=== PATIENT | female | born 1970 | race Caucasian/White ===

== ENCOUNTER → 2020-04-26 15:22 | Outpatient (BNVA) | payer OTHER, SELFPAY | PROVIDERS: Family Provider Nurse Practitioner Family; PCP Nurse Practitioner Family; Visit Provider Nurse Practitioner Family | DX: E55.9 Vitamin D deficiency, unspecified (principal); I10 Essential (primary) hypertension; R73.9 Hyperglycemia, unspecified | CPT/HCPCS: 80053; 80061; 82306; 83036; 84443; 85025 ==

== ENCOUNTER → 2020-06-01 15:46 | Outpatient (BNVA) | payer OTHER, SELFPAY | PROVIDERS: Family Provider Nurse Practitioner Family; PCP Nurse Practitioner Family; Visit Provider Nurse Practitioner Family | DX: M25.531 Pain in right wrist (principal); M79.641 Pain in right hand; M25.562 Pain in left knee | CPT/HCPCS: 73110; 73130; 73562 ==

== ENCOUNTER 2021-03-21 08:28 | Outpatient (CLI) | payer OTHER, SELFPAY ==
--- NOTE | 2021-03-21 08:15 | XRR_ITS ---
PROCEDURE INFORMATION: Exam: XR Abdomen Exam date and time: 03/21/2021 8:15 AM Age: 50 years old Clinical indication: Condition or disease; Kidney or ureter condition; Calculus (stone) in kidney; Prior surgery; Surgery type: Tubal; Additional info: History of kidney stones, f/u TECHNIQUE: Imaging protocol: XR of the abdomen. Views: Frontal supine view of the abdomen. 1 View. COMPARISON: CR XR KUB [id number] 03/17/2019 9:03 AM FINDINGS: Gastrointestinal tract: Normal. No bowel dilation. Bones/joints: Degenerative changes are present in the spine with disc space narrowing sclerosis and small osteophytes. XR/XR KUB [id number] IMPRESSION: No acute abnormality.
== END 2021-03-21 08:29 | disposition home or self-care (01) ==
LOC: RAD 08:30
PROVIDERS: PCP Nurse Practitioner Family; Visit Provider Urology
DX: N20.0 Calculus of kidney (principal)
CPT/HCPCS: 74018; 81003

== ENCOUNTER → 2021-05-19 16:30 | Outpatient (BNVA) | payer OTHER, SELFPAY | PROVIDERS: PCP Nurse Practitioner Family; Visit Provider Nurse Practitioner Family | DX: I10 Essential (primary) hypertension (principal); R73.9 Hyperglycemia, unspecified; E55.9 Vitamin D deficiency, unspecified | CPT/HCPCS: 80053; 80061; 82306; 82607; 83036; 84443; 85025 ==

== ENCOUNTER → 2021-07-20 14:30 | Outpatient (BNVA) | payer OTHER, SELFPAY | PROVIDERS: PCP Nurse Practitioner Family; Visit Provider Nurse Practitioner Family | DX: N39.0 Urinary tract infection, site not specified (principal) | CPT/HCPCS: 81003; 87077; 87086; 87184 ==

== ENCOUNTER → 2022-03-03 10:44 | Outpatient (BNVA) | payer OTHER, SELFPAY | PROVIDERS: PCP Nurse Practitioner Family; Visit Provider Nurse Practitioner Family | DX: E78.5 Hyperlipidemia, unspecified (principal); R73.9 Hyperglycemia, unspecified; E55.9 Vitamin D deficiency, unspecified; J01.40 Acute pansinusitis, unspecified; Z51.6 Encounter for desensitization to allergens; K21.9 Gastro-esophageal reflux disease without esophagitis | CPT/HCPCS: 80053; 80061; 82306; 83036; 84443; 85025 ==

== ENCOUNTER → 2022-03-27 11:14 | Outpatient (BNVA) | payer OTHER, SELFPAY | PROVIDERS: PCP Nurse Practitioner Family; Visit Provider Nurse Practitioner Family | DX: J02.9 Acute pharyngitis, unspecified (principal); J30.2 Other seasonal allergic rhinitis | CPT/HCPCS: 87071; 87880 ==

== ENCOUNTER → 2022-05-18 17:15 | Outpatient (BNVA) | payer OTHER, SELFPAY | PROVIDERS: PCP Nurse Practitioner Family; Visit Provider Nurse Practitioner Family | DX: M79.672 Pain in left foot (principal); M77.32 Calcaneal spur, left foot | CPT/HCPCS: 73630 ==

== ENCOUNTER → 2022-06-09 11:06 | Outpatient (BNVA) | payer OTHER, SELFPAY | PROVIDERS: PCP Nurse Practitioner Family; Visit Provider Nurse Practitioner Family | DX: R50.9 Fever, unspecified (principal); R30.0 Dysuria | CPT/HCPCS: 81000; 87400 ==

== ENCOUNTER 2022-06-15 10:54 | Outpatient (CLI) | payer OTHER, SELFPAY | END 2022-06-15 10:55 | disposition home or self-care (01) | LOC: SPT 10:54 | PROVIDERS: PCP Nurse Practitioner Family; Visit Provider Podiatrist Foot & Ankle Surgery | DX: Z46.89 Encounter for fitting and adjustment of other specified devices (principal); M72.2 Plantar fascial fibromatosis | CPT/HCPCS: 97760; L4397 ==

== ENCOUNTER → 2022-08-10 15:44 | Outpatient (BNVA) | payer OTHER, SELFPAY | PROVIDERS: PCP Nurse Practitioner Family; Visit Provider Nurse Practitioner Family | DX: Z12.4 Encounter for screening for malignant neoplasm of cervix (principal) | CPT/HCPCS: 87624 ==

== ENCOUNTER 2022-08-18 14:02 | Outpatient (CLI) | payer OTHER, SELFPAY ==
--- NOTE | 2022-08-18 14:00 | XR_ITS ---
WS: [id number] DEXA (DUAL ENERGY X-RAY ABSORPTIOMETRY) Bone mineral density was performed using a Rizzoma machine. HISTORY: Z78.0 - Asymptomatic menopausal state COMPARISON: None available. Lumbar spine BMD (L1-L4): 1.706 g/cm2 T score: 4.4 Z score: 3.9 Total hip BMD: Left: 1.366 g/cm2. T score: 2.8 Z score: 2.6 Right: 1.306 g/cm2. T score: 2.4 Z score: 2.1 10 year probability of a major osteoporotic fracture is 3.2%. XR/XR DEXA axial skeleton* [id number] IMPRESSION: NORMAL BONE MINERAL DENSITY based upon the WHO classification for females.
--- NOTE | 2022-08-18 14:30 | MM_ITS ---
WS: [email or web address] BILATERAL 3D TOMOSYNTHESIS DIGITAL SCREENING MAMMOGRAM WITH CAD CLINICAL INFORMATION: Z12.39 - Encounter for other screening for malignant neop... HISTORY: Screening mammogram. No current complaints. COMPARISON: 2015 TECHNIQUE: Bilateral CC and MLO views. FINDINGS: Fatty-replaced breasts bilaterally. No suspicious focal mass, asymmetry, calcifications, or architecture drafter ural distortion. No evidence of malignancy. Punctate and lucent centered calcifications. MM/[place] [id number] IMPRESSION: BI-RADS: 2-Benign FOLLOW UP: 1 Year Follow-up Recommend return to annual screening mammography.
== END 2022-08-18 14:03 | disposition home or self-care (01) ==
PROVIDERS: PCP Nurse Practitioner Family; Visit Provider Nurse Practitioner Family
DX: Z12.31 Encounter for screening mammogram for malignant neoplasm of breast (principal); Z78.0 Asymptomatic menopausal state
CPT/HCPCS: 77063; 77067; 77080; 87624

== ENCOUNTER 2022-10-12 06:20 | Outpatient (CLI) | payer OTHER, SELFPAY ==
--- NOTE | 2022-10-12 06:30 | US_ITS ---
WS: [id number] RIGHT UPPER QUADRANT ULTRASOUND HISTORY: R79.89 - Other specified abnormal findings of blood chemistry. COMPARISON: None available. Liver: 18.2 cm in length. Moderate hepatomegaly and hepatic steatosis. No mass or bile duct dilatatio n. Portal Vein: Normal hepatopetal flow with monophasic waveform. Gallbladder: Normally distended gallbladder with no stones or wall thickening. CBD: 0.3 cm Pancreas: Normal size and echogenicity. Right kidney: 10.7 cm in length. Normal size and echogenicity. No hydronephrosis or mass. Aorta and IVC: Unremarkable abdominal aorta and IVC. No ascites. US/US liver [id number] IMPRESSION: 1. Normal gallbladder. 2. Moderate hepatomegaly and hepatic steatosis.
== END 2022-10-12 06:21 | disposition home or self-care (01) ==
LOC: RAD 06:22
PROVIDERS: PCP Nurse Practitioner Family; Visit Provider Nurse Practitioner Family
DX: R79.89 Other specified abnormal findings of blood chemistry (principal); R16.0 Hepatomegaly, not elsewhere classified; K76.0 Fatty (change of) liver, not elsewhere classified
CPT/HCPCS: 76705

== ENCOUNTER → 2023-01-04 09:03 | Outpatient (BNVA) | payer OTHER, SELFPAY | PROVIDERS: PCP Nurse Practitioner Family; Visit Provider Nurse Practitioner Family | DX: M25.562 Pain in left knee (principal) | CPT/HCPCS: 73562 ==

== ENCOUNTER 2023-01-26 06:00 | Outpatient (RCR) | payer OTHER, SELFPAY | END 2023-01-29 23:59 | disposition home or self-care (01) | LOC: TPT 06:00 | PROVIDERS: PCP Nurse Practitioner Family; Visit Provider Nurse Practitioner Family | DX: M75.22 Bicipital tendinitis, left shoulder (principal) | CPT/HCPCS: 97110; 97162 ==

== ENCOUNTER 2023-01-30 06:00 | Outpatient (RCR) | payer OTHER, SELFPAY | END 2023-03-01 23:59 | disposition home or self-care (01) | LOC: TPT 06:00 | PROVIDERS: PCP Nurse Practitioner Family; Visit Provider Nurse Practitioner Family | DX: M75.22 Bicipital tendinitis, left shoulder (principal) | CPT/HCPCS: 97110; 97140 ==

== ENCOUNTER 2023-03-02 06:00 | Outpatient (RCR) | payer OTHER, SELFPAY | END 2023-03-31 23:59 | disposition home or self-care (01) | LOC: TPT 06:00 | PROVIDERS: PCP Nurse Practitioner Family; Visit Provider Nurse Practitioner Family | DX: M75.22 Bicipital tendinitis, left shoulder (principal) | CPT/HCPCS: 97110; 97140 ==

== ENCOUNTER → 2023-03-12 10:29 | Outpatient (BNVA) | payer OTHER, SELFPAY | PROVIDERS: PCP Nurse Practitioner Family; Visit Provider Nurse Practitioner Family | DX: Z51.6 Encounter for desensitization to allergens (principal); N61.0 Mastitis without abscess | CPT/HCPCS: 87070; 87075; 87205 ==

== ENCOUNTER 2023-04-01 06:00 | Outpatient (RCR) | payer OTHER, SELFPAY | END 2023-04-05 23:59 | disposition home or self-care (01) | LOC: TPT 06:00 | PROVIDERS: PCP Nurse Practitioner Family; Visit Provider Nurse Practitioner Family | DX: M75.22 Bicipital tendinitis, left shoulder (principal) | CPT/HCPCS: 97110 ==

== ENCOUNTER → 2023-05-22 12:32 | Outpatient (BNVA) | payer OTHER, SELFPAY | PROVIDERS: PCP Nurse Practitioner Family; Visit Provider Nurse Practitioner Family | DX: I10 Essential (primary) hypertension (principal); R73.9 Hyperglycemia, unspecified; E55.9 Vitamin D deficiency, unspecified | CPT/HCPCS: 80053; 80061; 82306; 82607; 83036; 83735; 84443; 85025 ==

== ENCOUNTER 2023-09-20 09:35 | Day surgery (SDC) | payer OTHER, SELFPAY ==
[2023-09-20 10:19] VITALS: BP 152/111; PULSE 115; RESP 16; TEMP 36.4; O2SAT 97; BMI 58.4
[2023-09-20] MEDS: sodium chloride 0.9% 1,000 ML 30 ML IV (10:20)
--- NOTE | 2023-09-20 10:31 | P.HP_ITS ---
Same Day Surgery H&P Indication for Procedure/HPI DATE OF PROCEDURE: September 20, 2023 CHIEF COMPLAINT/INDICATIONFOR SURGICAL PROCEDURE: need for screening colonoscopy PREOP DIAGNOSIS: need for screening colonoscopy PLANNED PROCEDURE: Operation Date: 09/20/23 10:40 [place] Procedures [place] 33079 colon G0121 screen colon A risk Z12.11(Not Applicable) - Cosme Tai MD Medications/Allergies* Home Medications Medication Instructions Recorded Confirmed Type multivitamin (Daily Multi-Vitamin 1 tab PO DAILY 09/24/19 09/20/23 History tablet) cholecalciferol (vitamin D3) 25 25 mcg PO DAILY 10/30/19 09/20/23 History mcg (1,000 unit) capsule black cohosh 1 cap PO DAILY 09/18/23 09/20/23 History buspirone 15 mg tablet 15 mg PO TID 09/18/23 09/20/23 History cyclobenzaprine 10 mg tablet 10 mg PO TID 09/18/23 09/20/23 History ferrous sulfate 325 mg (65 mg 325 mg PO DAILY 09/18/23 09/20/23 History iron) tablet (iron) levocetirizine 5 mg tablet 5 mg PO DAILY 09/18/23 09/20/23 History nortriptyline 10 mg capsule 10 mg PO DAILY 09/18/23 09/20/23 History sertraline 100 mg tablet 100 mg PO DAILY 09/18/23 09/20/23 History sumatriptan succinate 50 mg tablet 50 mg PO QID PRN Migraine Headache 09/18/23 09/20/23 History Allergies/Adverse Reactions Allergy/AdvReac Type Severity Reaction Status Date / Time No Known Allergies Allergy Verified 09/20/23 10:13 Current Medications: Generic Name Dose Route Start Last Admin Trade Name Freq PRN Reason Stop Dose Admin Sodium Chloride 1,000 mls @ 30 mls/hr 09/20/23 10:15 09/20/23 10:20 Sodium Chloride 0.9% IV 09/21/23 10:14 30 mls/hr .Q24H ALLAN Administration Pertinent History/Comorbid Conditions* Medical History (Updated 05/26/23 @ 16:56 by VERONICA Morton) Urolithiasis Hypertension Obesity Migraine Hyperlipidemia Anxiety and depression Surgical History (Updated 01/22/20 @ 09:14 by VERONICA Morton) Hx of tubal ligation Hx of dilation and curettage Hx of carpal tunnel repair Family History (Updated 09/24/19 @ 08:36 by Nasima Sylvester LPN, RT) Diabetes Family/Other Heart disease Hypertension Family/Other Stroke Family/Other Social History Smoking and tobacco/nicotine status: never used tobacco/nicotine Second hand smoke exposure: No Alcohol intake: never Substance/Drug Use: never Lives independently: Yes Household members: spouse Marital status: Current occupational status: employed Current occupation: Teacher at [employer] Current gender identity: Female Special kenneth needs: No Pertinent Exam Findings alert, oriented x 3 and clear to auscultation bilaterally Recommendations Surgery/Procedure today Coding Level of Care Code Acute Code for Chg Fwd
--- NOTE | 2023-09-20 10:39 | ANES.PREANE2 ---
Pre-Anesthetic Assessment Height/Weight: Height 1.6 m Weight 149.685 kg Temp Pulse Resp BP Pulse Ox O2 Del Method 97.6 F 115 H 16 152/111 97 Room Air 09/20/23 10:19 09/20/23 10:19 09/20/23 10:19 09/20/23 10:19 09/20/23 10:19 09/20/23 10:19 Preop Diagnosis: need for screening colonoscopy Operation Date: 09/20/23 10:40 Proposed Procedures p 83206 colon G0121 screen colon A risk Z12.11(Not Applicable) - Cosme Tai MD Familial anesthetic complications: None Was Beta Johnathon taken within 24 hours: N/A Was Clonidine taken within 24 hours: N/A Last intake: Intake Last Liquid Date 09/19/23 Last Liquid Time 23:30 Last Solid Date 09/18/23 Last Solid Time 20:00 Social No alcohol and No tobacco Exam alert, oriented x 3, clear to auscultation bilaterally and regular rate & rhythm Airway Submandibular: within normal limits Cervical ROM: within normal limits Mallampati: Class III Dentition: full History/ROS No significant history except as noted and No significant complaints Pulmonary Asthma (As a kid) and Sleep Apnea Sinus drainage CV/HEM Anemia, Hypertension and Palpitations Kidney stones Hepatic Fatty liver GI Gastroesophageal Reflux Disease (None this morning) Metabolic Morbid Obesity Musc/skel Osteoarthritis/DJD Neuropsych Anxiety, Depression, Headache (Controlled by meds) and Neuropathy Anesthetic Plan ASA status: 3 Anesthesia: Anesthesia Evaluation, General and MAC Risk of > 500 ml blood loss (7ml/kg in children): No Medications/Allergies Home Medications Medication Instructions Recorded Confirmed Last Taken Type multivitamin (Daily Multi-Vitamin 1 tab PO DAILY 09/24/19 09/20/23 09/18/23 History tablet) cholecalciferol (vitamin D3) 25 25 mcg PO DAILY 10/30/19 09/20/23 09/18/23 History mcg (1,000 unit) capsule Night splint #1 ea 06/15/22 08/14/23 Unknown Rx triamterene 37.5 1 tab PO QAM PRN edema #30 tabs 10/25/22 09/20/23 1 Week Ago Rx mg-hydrochlorothiazide 25 mg tablet ~09/13/23 diclofenac sodium 75 mg 75 mg PO BID PRN pain #60 tabs 01/04/23 09/20/23 09/18/23 Rx tablet,delayed release wlnunceyas-bjoptbrqnrmaj-gxlvaaux 1 tab PO Q6H PRN migraine headache 02/16/23 09/20/23 3 Weeks Ago Rx 50 mg-325 mg-40 mg tablet #30 tabs ~08/30/23 olopatadine 0.7 % eye drops 1 drp ophthalmic (eye) DAILY PRN 04/25/23 09/20/23 3 Months Ago Rx (Pataday Once Daily Relief) itching #5 mL ~06/21/23 atorvastatin 10 mg tablet 10 mg PO DAILY #90 tabs 06/13/23 09/20/23 09/18/23 Rx meclizine 25 mg tablet 25 mg PO TID PRN dizziness #30 tabs 06/13/23 09/20/23 2 Months Ago Rx ~07/22/23 black cohosh 1 cap PO DAILY 09/18/23 09/20/23 09/18/23 History buspirone 15 mg tablet 15 mg PO TID 09/18/23 09/20/23 09/18/23 History cyclobenzaprine 10 mg tablet 10 mg PO TID 09/18/23 09/20/23 09/18/23 History ferrous sulfate 325 mg (65 mg 325 mg PO DAILY 09/18/23 09/20/23 09/18/23 History iron) tablet (iron) levocetirizine 5 mg tablet 5 mg PO DAILY 09/18/23 09/20/23 09/18/23 History nortriptyline 10 mg capsule 10 mg PO DAILY 09/18/23 09/20/23 09/18/23 History sertraline 100 mg tablet 100 mg PO DAILY 09/18/23 09/20/23 09/18/23 History sumatriptan succinate 50 mg tablet 50 mg PO QID PRN Migraine Headache 09/18/23 09/20/23 2 Months Ago History ~07/22/23 Allergies Allergy/AdvReac Type Severity Reaction Status Date / Time No Known Allergies Allergy Verified 09/20/23 10:13 Current Medications Generic Name Dose Route Start Last Admin Trade Name Freq PRN Reason Stop Dose Admin Sodium Chloride 1,000 mls @ 30 mls/hr 09/20/23 10:15 09/20/23 10:20 Sodium Chloride 0.9% IV 09/21/23 10:14 30 mls/hr .Q24H ALLAN Administration PFSH Anesthesia Medical History Urolithiasis Hypertension Obesity Migraine Hyperlipidemia Anxiety and depression Surgical History Hx of tubal ligation Hx of dilation and curettage Hx of carpal tunnel repair Family History Family/Other Diabetes Hypertension Stroke Other Heart disease Social History Smoking and tobacco/nicotine status: never used tobacco/nicotine Second hand smoke exposure: No Alcohol intake: never Substance/Drug Use: never Lives independently: Yes Household members: spouse Marital status: Current occupational status: employed 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
[2023-09-20 12:12] VITALS: BP 112/75; PULSE 91; RESP 20; TEMP 36.1; O2SAT 94
[2023-09-20 12:27] VITALS: BP 133/72; PULSE 84; RESP 18; O2SAT 98
--- NOTE | 2023-09-20 12:55 | ANE.PACU2 ---
Inpatient post-anesthesia follow up: Airway intact: Yes Vital signs: Temperature 97 F Pulse Rate 84 Respiratory Rate 18 Blood Pressure 133/72 Pulse Oximetry 98 Oxygen Delivery Me thod Room Air Oxygen Flow Rate 6 Fraction of Inspir ed Oxygen Hydration adequate: Yes Nausea and vomiting: No Pain level: 1 Mental status: Baseline
== END 2023-09-20 12:55 | disposition home or self-care (01) ==
PROVIDERS: PCP Nurse Practitioner Family; Visit Provider Surgery
PROC: 0DJD8ZZ Inspection of Lower Intestinal Tract, Via Natural or Artificial Opening Endoscopic (ICD-10-PCS; CPT 45378; principal; 2023-09-20 10:40)
DX: Z12.11 Encounter for screening for malignant neoplasm of colon (principal); E66.9 Obesity, unspecified; Z68.43 Body mass index [BMI] 50.0-59.9, adult; E78.5 Hyperlipidemia, unspecified; J45.909 Unspecified asthma, uncomplicated; G47.30 Sleep apnea, unspecified; I10 Essential (primary) hypertension; K21.9 Gastro-esophageal reflux disease without esophagitis; M19.90 Unspecified osteoarthritis, unspecified site
CPT/HCPCS: 45378; J2704; J7030

== ENCOUNTER → 2023-11-30 12:22 | Outpatient (BNVA) | payer OTHER, SELFPAY | PROVIDERS: PCP Nurse Practitioner Family; Visit Provider Nurse Practitioner Family | DX: E78.5 Hyperlipidemia, unspecified (principal) | CPT/HCPCS: 80053; 80061 ==

== ENCOUNTER → 2023-12-12 16:23 | Outpatient (BNVA) | payer OTHER, SELFPAY | PROVIDERS: PCP Nurse Practitioner Family; Visit Provider Nurse Practitioner Family | DX: E87.8 Other disorders of electrolyte and fluid balance, not elsewhere classified (principal) | CPT/HCPCS: 80053 ==

== ENCOUNTER → 2024-01-23 15:28 | Outpatient (BNVA) | payer OTHER, SELFPAY | PROVIDERS: PCP Nurse Practitioner Family; Visit Provider Nurse Practitioner Family | DX: I10 Essential (primary) hypertension (principal) | CPT/HCPCS: 80048 ==

== ENCOUNTER → 2024-03-31 15:02 | Outpatient (BNVA) | payer OTHER, SELFPAY | PROVIDERS: PCP Nurse Practitioner Family; Visit Provider Nurse Practitioner Family | DX: M25.522 Pain in left elbow (principal); M19.90 Unspecified osteoarthritis, unspecified site | CPT/HCPCS: 73080 ==

== ENCOUNTER → 2024-05-13 13:25 | Outpatient (BNVA) | payer OTHER, SELFPAY | PROVIDERS: PCP Nurse Practitioner Family; Visit Provider Nurse Practitioner Family | DX: I10 Essential (primary) hypertension (principal); R73.9 Hyperglycemia, unspecified | CPT/HCPCS: 80053; 80061; 83036; 83721; 84443; 85025 ==

== ENCOUNTER 2024-08-26 16:29 | Outpatient (CLI) | payer OTHER, SELFPAY ==
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
== END 2024-08-26 16:30 | disposition home or self-care (01) ==
PROVIDERS: PCP Nurse Practitioner Family; Visit Provider Nurse Practitioner Family
DX: S09.93XA Unspecified injury of face, initial encounter (principal); X58.XXXA Exposure to other specified factors, initial encounter; R93.89 Abnormal findings on diagnostic imaging of other specified body structures
CPT/HCPCS: 70486

== ENCOUNTER → 2025-01-19 11:50 | Outpatient (BNVA) | payer OTHER, SELFPAY | PROVIDERS: PCP Nurse Practitioner Family; Visit Provider Nurse Practitioner Family | DX: I10 Essential (primary) hypertension (principal); R73.9 Hyperglycemia, unspecified; E55.9 Vitamin D deficiency, unspecified | CPT/HCPCS: 80053; 80061; 82306; 82607; 82728; 83036; 83550; 83735; 84443; 85025 ==

== ENCOUNTER 2025-01-22 09:32 | Outpatient (CLI) | payer OTHER, SELFPAY ==
--- NOTE | 2025-01-22 09:40 | MM_ITS ---
WS: [email or web address] BILATERAL SCREENING DIGITAL TOMOSYNTHESIS MAMMOGRAM WITH CAD HISTORY: Z12.39 - Encounter for other screening for malignant neop... COMPARISON: 08/18/2022, 05/30/2016 Bilateral CC and MLO views with tomosynthesis and synthetic mammography submitted. Computer aided detection analyzed. Breast composition: The breasts are almost entirely fatty. No suspicious masses, microcalcifications or architectural distortion. Numerous benign calcifications in each breast. No suspicious grouping of calcifications and no distortion. MM/MM scr BI tomosynthesis [id number] IMPRESSION: BI-RADS: 2 - Benign. FOLLOW UP: 1 Year Follow-up
== END 2025-01-22 09:33 | disposition home or self-care (01) ==
LOC: RAD 09:33
PROVIDERS: PCP Nurse Practitioner Family; Visit Provider Nurse Practitioner Family
DX: Z12.31 Encounter for screening mammogram for malignant neoplasm of breast (principal); R92.313 Mammographic fatty tissue density, bilateral breasts; R92.1 Mammographic calcification found on diagnostic imaging of breast
CPT/HCPCS: 77063; 77067

== ENCOUNTER → 2025-02-02 14:05 | Outpatient (BNVA) | payer OTHER, SELFPAY | PROVIDERS: PCP Nurse Practitioner Family; Visit Provider Nurse Practitioner Family | DX: M25.551 Pain in right hip (principal); M47.816 Spondylosis without myelopathy or radiculopathy, lumbar region | CPT/HCPCS: 72100; 73502 ==

== ENCOUNTER → 2025-04-28 10:49 | Outpatient (BNVA) | payer OTHER, SELFPAY | PROVIDERS: PCP Nurse Practitioner Family; Visit Provider Nurse Practitioner Family | DX: I10 Essential (primary) hypertension (principal); E66.9 Obesity, unspecified | CPT/HCPCS: 80053; 82607; 83036; 84443; 85025 ==

== ENCOUNTER → 2025-05-26 13:30 | Outpatient (BNVA) | payer OTHER, SELFPAY | PROVIDERS: PCP Nurse Practitioner Family; Visit Provider Nurse Practitioner Family | DX: R94.4 Abnormal results of kidney function studies (principal) | CPT/HCPCS: 80048 ==

== ENCOUNTER → 2025-06-22 12:12 | Outpatient (BNVA) | payer OTHER, SELFPAY | PROVIDERS: PCP Nurse Practitioner Family; Visit Provider Nurse Practitioner Family | DX: N18.9 Chronic kidney disease, unspecified (principal) | CPT/HCPCS: 80048; 82043 ==

== ENCOUNTER 2025-06-26 09:47 | Outpatient (CLI) | payer OTHER, SELFPAY ==
--- NOTE | 2025-06-26 09:45 | US_ITS ---
WS: [email or web address] RENAL ULTRASOUND HISTORY: N18.31 - Chronic kidney disease, stage 3a COMPARISON: None available. TECHNIQUE: 2-D and color Doppler imaging of the kidney submitted. Right kidney: 11.2 cm x 5.8 cm x 5.7 cm. Cortex: 1.2 cm Normal echogenicity with no hydronephrosis or mass. Left kidney: 10.6 cm x 4.8 cm x 5.4 cm. Cortex: 0.9 cm Normal size kidney with mild cortical thinning. No obstruction. Aorta: Normal. Urinary Bladder: Minimally distended. US/US renal BI* [id number] IMPRESSION: 1. No renal obstruction. 2. Mild cortical thinning LEFT kidney.
== END 2025-06-26 09:48 | disposition home or self-care (01) ==
LOC: RAD 09:48
PROVIDERS: PCP Nurse Practitioner Family; Visit Provider Nurse Practitioner Family
DX: N18.31 Chronic kidney disease, stage 3a (principal); R93.422 Abnormal radiologic findings on diagnostic imaging of left kidney
CPT/HCPCS: 76770